=== PATIENT | male | born 1970 | race Hispanic/Latino ===

== ENCOUNTER 2018-01-31 | Emergency (ER) | payer BC ==
--- NOTE | 2018-01-31 15:03 | EDPHYS ---
Physician Documentation [facility] Name: Nasim Richard Jr Age: 48 yrs Sex: Male : 1970 Arrival Date: 01/31/2018 Time: 14:03 Bed 23 Private MD: ED Physician Rafal Cain HPI: 01/31 15:36 This 48 yrs old Male presents to ER via Ambulatory with complaints of Ear Pain.jr8 15:36 The patient presents with a fullness, pain. The complaints affect the right ear. Onset: jr8 The symptoms/episode began/occurred acutely, 2 day(s) ago. Modifying factors: The symptoms are alleviated by nothing, the symptoms are aggravated by nothing. Associated signs and symptoms: Pertinent positives: cough, rhinorrhea, sinus trouble. Severity of symptoms: At their worst the symptoms were moderate in the emergency department the symptoms are unchanged. The patient has not experienced similar symptoms in the past. The patient has not recently seen a physician. Historical: - Allergies: 14:14 No Known Allergies; hb - Home Meds: 14:14 lisinopril 20 mg Oral tab 1 tab once daily [Active]; hb - PMHx: 14:14 Hypertension; hb - PSHx: 14:14 vocal chord sx; hb - Immunization history:: Adult Immunizations up to date. - Social history:: Smoking status: Patient/guardian denies using tobacco. ROS: 15:36 Eyes: Negative for injury, pain, redness, and discharge, Neck: Negative for injury, jr8 pain, and swelling, Cardiovascular: Negative for chest pain, palpitations, and edema, Abdomen/GI: Negative for abdominal pain, nausea, vomiting, diarrhea, and constipation, Back: Negative for injury and pain, MS/Extremity: Negative for injury and deformity, Skin: Negative for injury, rash, and discoloration, Neuro: Negative for headache, weakness, numbness, tingling, and seizure. 15:36 ENT: Positive for ear pain, rhinorrhea, sinus congestion, sinus pain, Negative for tinnitus. 15:36 Respiratory: Positive for cough, Negative for shortness of breath, sputum production, wheezing. Exam: 15:36 Eyes: Pupils equal round and reactive to light, extra-ocular motions intact. Lids and jr8 lashes normal. Conjunctiva and sclera are non-icteric and not injected. Cornea within normal limits. Periorbital areas with no swelling, redness, or edema. Neck: Trachea midline, no thyromegaly or masses palpated, and no cervical lymphadenopathy. Supple, full range of motion without nuchal rigidity, or vertebral point tenderness. No Meningismus. Cardiovascular: Regular rate and rhythm with a normal S1 and S2. No gallops, murmurs, or rubs. Normal PMI, no JVD. No pulse deficits. Respiratory: Lungs have equal breath sounds bilaterally, clear to auscultation and percussion. No rales, rhonchi or wheezes noted. No increased work of breathing, no retractions or nasal flaring. Abdomen/GI: Soft, non-tender, with normal bowel sounds. No distension or tympany. No guarding or rebound. No evidence of tenderness throughout. Back: No spinal tenderness. No costovertebral tenderness. Full range of motion. Skin: Warm, dry with normal turgor. Normal color with no rashes, no lesions, and no evidence of cellulitis. MS/ Extremity: Pulses equal, no cyanosis. Neurovascular intact. Full, normal range of motion. Neuro: Awake and alert, GCS 15, oriented to person, place, time, and situation. Cranial nerves II-XII grossly intact. Motor strength 5/5 in all extremities. Sensory grossly intact. Cerebellar exam normal. Normal gait. 15:36 Head/face: Sinus tenderness, that is moderate, is located over the right frontal sinus, left frontal sinus, right maxillary sinus and left maxillary sinus. 15:36 ENT: External ear(s): are unremarkable, Ear canal(s): erythema, that is moderate, of the right canal, swelling, that is moderate, of the right canal, TM's: are normal, Nose: External nose: no obvious acute abnormality, Nasal septum: is midline, Nasal mucosa: erythematous, moist, Turbinates: are swollen bilaterally, Mouth: Lips: moist, Oral mucosa: pink and intact, moist, Gums: pink, Tongue: is moist, Posterior pharynx: Airway: patent, Tonsils: are normal in appearance, Uvula: midline, non-edematous, no erythema, swelling, is not appreciated, erythema, is not appreciated. Vital Signs: 14:14 BP 153 / 100; Pulse 69; Resp 16; Temp 98.5; Pulse Ox 99% ; Weight 83.91 kg; Height 2 hb ft. 56 in. (203.20 cm); Pain 9/10; 14:14 Body Mass Index 20.32 (83.91 kg, 203.20 cm) hb MDM: 14:43 Patient medically screened. jr8 15:00 Data reviewed: vital signs, nurses notes, and as a result, I will discharge patient. jr8 Data interpreted: Pulse oximetry: on room air is 99 %. Interpretation: normal. Counseling: I had a detailed discussion with the patient and/or guardian regarding: the historical points, exam findings, and any diagnostic results supporting the discharge/admit diagnosis, the need for outpatient follow up, a family practitioner, to return to the emergency department if symptoms worsen or persist or if there are any questions or concerns that arise at home. Administered Medications: No medications were administered Disposition: 02/01 07:01 Co-signature as Attending Physician, Rafal Cain MD I agree with the assessment and stefano plan of care. Disposition: 01/31/18 15:02 Discharged to Home. Impression: Acute sinusitis, Otitis externa, Otalgia. - Condition is Stable. - Discharge Instructions: Otitis Media, Adult, Otitis Externa, Sinusitis, Adult. - Prescriptions for Augmentin 875- 125 mg Oral Tablet - take 1 tablet by ORAL route every 12 hours for 10 days; 20 tablet. Cortisporin- TC 3.3-3-10-0.5 mg/mL Otic Suspension - instill 4 drop by OTIC route every 6 hours; 1 bottle. Ibuprofen 800 mg Oral Tablet - take 1 tablet by ORAL route every 12 hours As needed take with food; 20 tablet. - Medication Reconciliation Form, Thank You Letter, Antibiotic Education, Prescription Opioid Use form. - Follow up: Private Physician; When: 5 - 6 days; Reason: Recheck today's complaints, Continuance of care, Re-evaluation by your physician. - Problem is new. - Symptoms have improved. Signatures: Rfaal Cain MD MD cha Roszak, Josh, PA PA jr8 Vonda Sheikh, RN RN Leena Landeros RN RN rk2 Corrections: (The following items were deleted from the chart) 01/31 15:37 15:36 ENT: Positive for rhinorrhea, sinus congestion, sinus pain, jr8 jr8
--- NOTE | 2018-01-31 15:03 | ER ---
Nurse's Notes [facility] Name: Nasim Richard Jr Age: 48 yrs Sex: Male : 1970 Arrival Date: 01/31/2018 Time: 14:03 Bed 23 Private MD: Diagnosis: Acute sinusitis;Otitis externa;Otalgia Presentation: 01/31 14:12 Presenting complaint: Patient states: Right ear pain x 5 days. Transition of care: hb patient was not received from another setting of care. Onset of symptoms was January 26, 2018. Care prior to arrival: None. 14:12 Method Of Arrival: Ambulatory 14:12 Acuity: ELEAZAR 4 hb Triage Assessment: 15:00 General: Appears in no apparent distress. well groomed, well developed, well nourished, rk2 Behavior is calm, cooperative. Pain: Complains of pain in right ear. EENT: Reports pain in right ear. 15:00 Neuro: Level of Consciousness is alert, obeys commands, Oriented to person, place, rk2 time, situation. Respiratory: Airway is patent Respiratory effort is even, unlabored, Respiratory pattern is regular, symmetrical. Derm: Skin is pink, warm \T\ dry. Historical: - Allergies: 14:14 No Known Allergies; hb - Home Meds: 14:14 lisinopril 20 mg Oral tab 1 tab once daily [Active]; hb - PMHx: 14:14 Hypertension; hb - PSHx: 14:14 vocal chord sx; hb - Immunization history:: Adult Immunizations up to date. - Social history:: Smoking status: Patient/guardian denies using tobacco. Screenin:00 Abuse screen: Denies threats or abuse. rk2 15:00 Nutritional screening: No deficits noted. Tuberculosis screening: No symptoms or risk rk2 factors identified. Fall Risk None identified. Vital Signs: 14:14 BP 153 / 100; Pulse 69; Resp 16; Temp 98.5; Pulse Ox 99% ; Weight 83.91 kg; Height 2 hb ft. 56 in. (203.20 cm); Pain 9/10; 14:14 Body Mass Index 20.32 (83.91 kg, 203.20 cm) hb ED Course: 14:03 Patient arrived in ED. sb2 14:13 Triage completed. hb 14:13 Arm band placed on left wrist. hb 14:43 Maldonado Henson [facility] is [facility] 14:43 Rafal Cain MD is Attending Physician. jr8 15:00 Patient has correct armband on for positive identification. Bed in low position. Call rk2 light in reach. 15:15 No provider procedures requiring assistance completed. Patient did not have IV access rk2 during this emergency room visit. Administered Medications: No medications were administered Outcome: 15:02 Discharge ordered by . jr8 15:15 Discharged to home ambulatory. rk2 15:15 Condition: good 15:15 Discharge instructions given to patient. 15:16 Patient left the ED. rk2 Signatures: Maldonado Henson PA PA jr8 Vonda Sheikh RN RN Leena Landeros RN RN rk2 Rupali Pacheco 2
== END 2018-01-31 15:16 | disposition home or self-care (01) ==
CPT/HCPCS: 99281

== ENCOUNTER 2022-05-22 23:32 | Inpatient (IN) | payer BC, SELFPAY ==
[2022-05-23 00:12] LABS: Absolute Lymphocytes (CBC) 1.6 K/uL (0.7-4.9); Hematocrit 41.1 % (39.6-49.0); Lymphocytes % 28.9 % (15.3-44.8); MCV 88.3 fL (80-100); MPV 6.7 fL (7.6-11.3); Protime INR 1.04; RBC Red Blood Cell Count 4.65 M/uL (4.33-5.43)
[2022-05-23 00:32] LABS: ALT/SGPT 24 U/L (12-78); AST/SGOT 13 U/L (15-37); Albumin 3.9 g/dL (3.4-5.0); Alkaline Phosphatase 44 U/L (45-117); BUN Blood Urea Nitrogen 14 mg/dL (7-18); Bicarbonate 25 mmol/L (21-32); Bilirubin Direct < 0.1 mg/dL (0-0.2); Bilirubin Total 0.3 mg/dL (0.2-1.0); Glomerular Filtration Rate 90 ml/min (=/>90); Glucose Level 109 mg/dL (74-106); NT PRO-BNP 100 pg/mL (<125); Potassium 3.5 mmol/L (3.5-5.1); Protein, Total 7.4 g/dL (6.4-8.2); Sodium Level 139 mmol/L (136-145)
[2022-05-23 00:34] LABS: Troponin High Sensitivity 135.2 pg/mL (<58.9)
[2022-05-23] MEDS ORDERED: NA CHLORIDE 0.9% 500 ML ONE (00:39)
[2022-05-23] MEDS ORDERED: ASPIRIN 81 MG CHEWABLE TABLET ONE (00:39)
[2022-05-23] MEDS ORDERED: NITROGLYCERIN 0.4 MG/TAB SL ONE (00:39)
--- NOTE | 2022-05-23 01:09 | ER ---
Nurse's Notes [facility] Name: Nasim Richard Jr Age: 52 yrs Sex: Male : 1970 Arrival Date: 05/22/2022 Time: 23:33 Bed 17 Private MD: Diagnosis: Subsequent non-ST elevation (NSTEMI) myocardial infarction Presentation: 05/22 23:45 Chief complaint: Patient states: he was lying on the couch about an hour ago and bb started having chest pain he denies SOB, nausea, light-headedness or dizziness, has not experienced this in the past. Coronavirus screen: At this time, the client does not indicate any symptoms associated with coronavirus-19. Ebola Screen: No symptoms or risks identified at this time. Initial Sepsis Screen: Does the patient meet any 2 criteria? No. Patient's initial sepsis screen is negative. Does the patient have a suspected source of infection? No. Patient's initial sepsis screen is negative. Risk Assessment: Do you want to hurt yourself or someone else? Patient reports no desire to harm self or others. Onset of symptoms was May 22, 2022. 23:45 Method Of Arrival: Ambulatory bb 23:45 Acuity: ELEAZAR 3 bb Triage Assessment: 23:45 General: Appears uncomfortable, Behavior is cooperative, anxious. Pain: Complains of vc1 pain in chest Pain radiates to back Pain currently is 4 out of 10 on a pain scale. at worst was 5 out of 10 on a pain scale. Quality of pain is described as pressure. EENT: No deficits noted. Neuro: Level of Consciousness is awake, alert, obeys commands, Oriented to person, place, time, situation, Appropriate for age. Cardiovascular: Reports chest pain, Capillary refill < 3 seconds Patient's skin is warm and dry. Chest pain is described as mild, quality is pressure, is located in anterior chest wall radiates back began suddenly, 1 hour prior to arrival. 23:45 Respiratory: Airway is patent Respiratory effort is even, unlabored, Respiratory vc1 pattern is regular, symmetrical. GI: No deficits noted. : No deficits noted. Derm: No deficits noted. Musculoskeletal: No deficits noted. Historical: - Allergies: 23:47 No Known Allergies; bb - Home Meds: 23:47 None [Active]; bb - PMHx: 23:47 Hypertension; bb - PSHx: 23:47 None; bb - Immunization history:: Client reports having NOT received the Covid vaccine. - Social history:: Smoking status: Patient reports the use of cigarette tobacco products. Screenin/18 01:43 Abuse screen: Denies threats or abuse. Nutritional screening: No deficits noted. vc1 Tuberculosis screening: No symptoms or risk factors identified. Fall Risk None identified. Assessment: 05/22 23:45 Pain: Pain began suddenly, 1 hour ago. vc1 05/23 00:15 Reassessment: Patient and/or family updated on plan of care and expected duration. Pain vc1 level reassessed. Patient is alert, oriented x 3, equal unlabored respirations, skin warm/dry/pink. Patient states symptoms have improved. 01:30 Reassessment: No changes from previously documented assessment. Patient and/or family vc1 updated on plan of care and expected duration. Pain level reassessed. Patient is alert, oriented x 3, equal unlabored respirations, skin warm/dry/pink. 02:28 Reassessment: Patient and/or family updated on plan of care and expected duration. Pain vc1 level reassessed. Patient is alert, oriented x 3, equal unlabored respirations, skin warm/dry/pink. Patient states feeling better. Patient states symptoms have improved. Pain: Complains of pain in chest Pain level that patient reports is acceptable is 2 out of 10 on a pain scale. Vital Signs: 05/22 23:45 BP 168 / 97; Pulse 66; Resp 16 S; Temp 98.1(O); Pulse Ox 95% on R/A; Weight 83.91 kg bb (R); Height 5 ft. 6 in. (167.64 cm) (R); Pain 5/10; 05/23 01:42 BP 130 / 92; Pulse 58; Resp 16; Pulse Ox 95% on 2 lpm NC; vc1 02:39 BP 121 / 87; Pulse 56; Resp 17; Pulse Ox 95% on 2 lpm NC; vc1 05/22 23:45 Body Mass Index 29.86 (83.91 kg, 167.64 cm) ED Course: 05/22 23:33 Patient arrived in ED. jj6 23:35 Inserted saline lock: 20 gauge in right antecubital area, using aseptic technique. vc1 Blood collected. 23:42 Rafal Bansal PA is PHCP. cp 23:42 Yasmany Moctezuma MD is Attending Physician. cp 23:47 Triage completed. bb 23:47 Arm band placed on Patient placed in an exam room, on a stretcher, on telemetry monitor, bb on pulse oximetry. EKG completed in triage. Results shown to MD. 23:47 Patient has correct armband on for positive identification. Placed in gown. Bed in low vc1 position. Call light in reach. Client placed on continuous cardiac and pulse oximetry monitoring. NIBP monitoring applied. 23:53 Marisa Fuller RN is Primary Nurse. vc1 05/23 00:13 XRAY Chest (1 view) In Process Unspecified. EDMS 00:30 Oxygen administration via nasal cannula \T\ 2L/min. vc1 00:34 Notified Nurse Practitioner and/or Physician Lead Game Designer of a critical lab result(s), bb troponin of 135.2 Rafal SANTOS notified. 01:08 Aaron Michael MD is Hospitalizing Provider. cp 03:08 No provider procedures requiring assistance completed. Patient admitted, IV remains in vc1 place. Administered Medications: 00:34 Drug: Aspirin Chewable Tablet 162 mg Route: PO; vc1 00:35 Drug: Nitroglycerin 0.4 mg Route: Sublingual; vc1 00:36 Drug: NS 0.9% 500 ml Route: IV; Rate: bolus; Site: right antecubital; vc1 00:42 Drug: Nitroglycerin 0.4 mg Route: Sublingual; vc1 01:42 Drug: Lovenox (enoxaparin) 1 mg/kg Route: Sub-Q; Site: right lower abdomen; vc1 01:43 Not Given (Hemodynamic Parameters): Metoprolol 25 mg PO once vc1 Medication: 01:46 VIS not applicable for this client. vc1 Outcome: 01:09 Decision to Hospitalize by Provider. cp 03:08 Admitted to Med/surg accompanied by tech, via wheelchair, room 205, Report called to ralph Valdez RN 03:08 Condition: improved 03:08 Instructed on the need for admit. 03:09 Patient left the ED. vc1 Signatures: Dispatcher [employer] EDMaria Alejandra Amaya RN RN bb Page, Corey, PA PA cp Frieda Pattersonfer jj6 Alina, Marisa, RN RN vc1
--- NOTE | 2022-05-23 01:10 | EDPHYS ---
Physician Documentation [facility] Name: Nasim Richard Jr Age: 52 yrs Sex: Male : 1970 Arrival Date: 05/22/2022 Time: 23:33 Bed 17 Private MD: ED Physician Yasmany Moctezuma HPI: 05/22 23:45 This 52 yrs old Male presents to ER via Ambulatory with complaints of Chest cp Pain. 23:45 The patient or guardian reports chest pain that is located primarily in the substernal cp area. 23:45 Onset: 1 hour(s) ago. The pain does not radiate. Associated signs and symptoms: cp Pertinent negatives: abdominal pain, cough, diaphoresis, lower extremity pain, lower extremity swelling, shortness of breath, syncope, vomiting. The chest pain is described as a pressure. Duration: The patient or guardian reports a single episode, that is still ongoing, and unchanged. Modifying factors: The symptoms are alleviated by nothing. the symptoms are aggravated by nothing. Pain started while on couch watching TV. Reports similar episode of chest pain previous night. Historical: - Allergies: 23:47 No Known Allergies; bb - Home Meds: 23:47 None [Active]; bb - PMHx: 23:47 Hypertension; bb - PSHx: 23:47 None; bb - Immunization history:: Client reports having NOT received the Covid vaccine. - Social history:: Smoking status: Patient reports the use of cigarette tobacco products. ROS: 23:45 Constitutional: Negative for body aches, chills, fever, poor PO intake. cp 23:45 Eyes: Negative for injury, pain, redness, and discharge. cp 23:45 ENT: Negative for drainage from ear(s), ear pain, sore throat, difficulty swallowing, difficulty handling secretions. 23:45 Cardiovascular: Positive for chest pain, of the substernal, Negative for edema, palpitations. 23:45 Respiratory: Negative for cough, shortness of breath, wheezing. 23:45 Abdomen/GI: Negative for abdominal pain, vomiting, diarrhea, constipation. Exam: 23:45 ECG was reviewed by the Attending Physician. cp 23:50 Constitutional: The patient appears in no acute distress, alert, awake, non-toxic, well cp developed, well nourished. 23:50 Head/Face: Normocephalic, atraumatic. cp 23:50 Eyes: Periorbital structures: appear normal, Conjunctiva: normal, no exudate, no injection, Sclera: no appreciated abnormality, Lids and lashes: appear normal, bilaterally. 23:50 ENT: External ear(s): are unremarkable, Nose: is normal, Mouth: Lips: moist, Oral mucosa: pink and intact, moist, Posterior pharynx: Airway: no evidence of obstruction, patent. 23:50 Neck: ROM/movement: is normal, is supple, without pain, no range of motions limitations. 23:50 Chest/axilla: Inspection: normal, Palpation: is normal, no crepitus, no tenderness. 23:50 Cardiovascular: Rate: normal, Rhythm: regular, Edema: is not appreciated, JVD: is not appreciated. 23:50 Respiratory: the patient does not display signs of respiratory distress, Respirations: normal, no use of accessory muscles, no retractions, labored breathing, is not present, Breath sounds: are clear throughout, no decreased breath sounds, no stridor, no wheezing. 23:50 Abdomen/GI: Inspection: abdomen appears normal, Bowel sounds: active, all quadrants, Palpation: abdomen is soft and non-tender, in all quadrants. 23:50 Back: pain, is absent, ROM is normal. 23:50 Neuro: Orientation: to person, place \\T\\ time. Mentation: is normal, Motor: moves all fours, strength is normal, Sensation: is normal. Vital Signs: 23:45 BP 168 / 97; Pulse 66; Resp 16 S; Temp 98.1(O); Pulse Ox 95% on R/A; Weight 83.91 kg bb (R); Height 5 ft. 6 in. (167.64 cm) (R); Pain 5/10; 05/23 01:42 BP 130 / 92; Pulse 58; Resp 16; Pulse Ox 95% on 2 lpm NC; vc1 02:39 BP 121 / 87; Pulse 56; Resp 17; Pulse Ox 95% on 2 lpm NC; vc1 05/22 23:45 Body Mass Index 29.86 (83.91 kg, 167.64 cm) bb MDM: 05/22 23:43 Patient medically screened. cp 05/23 01:05 The patient was given aspirin in the Emergency Department. cp 01:05 Data reviewed: vital signs, nurses notes, lab test result(s), EKG, radiologic studies, cp plain films, I have discussed the patient's presentation/case with the attending Emergency Department Physician; and as a result, I will admit patient. Test interpretation: by ED physician or midlevel provider: ECG, plain radiologic studies. Physician consultation: Aaron Michael MD was called at 01:00, was contacted at 01:00, regarding admission, to the telemetry unit. patient's condition. 05/22 23:43 Order name: Basic Metabolic Panel; Complete Time: 00:40 05/22 23:43 Order name: CBC with Diff; Complete Time: 00:40 05/22 23:43 Order name: LFT's; Complete Time: 00:40 05/22 23:43 Order name: Magnesium; Complete Time: 00:40 05/22 23:43 Order name: NT PRO-BNP; Complete Time: 00:40 05/22 23:43 Order name: PT-INR; Complete Time: 00:40 05/22 23:43 Order name: Troponin HS; Complete Time: 00:40 05/23 00:40 Interpretation: Abnormal: Troponin HS 135.2. 05/23 00:43 Order name: COVID-19 SARS RT PCR (Document "Date of Onset" if Symptomatic); Complete vc1 Time: 17:05/23 01:23 Order name: Urinalysis [facility] 05/23 01:23 Order name: CKMB Creatine Kinase MB [facility] 05/23 01:23 Order name: CKMB Creatine Kinase MB; Complete Time: 17:06 [facility] 05/23 01:23 Order name: CKMB Creatine Kinase MB; Complete Time: 17:06 [facility] 05/23 01:23 Order name: CKMB Creatine Kinase MB [facility] 05/23 01:23 Order name: Creatine Phosphokinase [facility] 05/22 23:43 Order name: XRAY Chest (1 view) 05/22 23:43 Order name: EKG; Complete Time: 23:44 05/23 01:23 Order name: Creatine Phosphokinase; Complete Time: 17:06 [facility] 05/23 01:23 Order name: Creatine Phosphokinase; Complete Time: 17:06 [facility] 05/23 01:23 Order name: Creatine Phosphokinase [facility] 05/23 01:23 Order name: Lipid Profile [facility] 05/23 01:23 Order name: Lipid Profile; Complete Time: 17:06 [facility] 05/23 01:25 Order name: Troponin High Sensitivity [facility] 05/23 01:25 Order name: Troponin High Sensitivity; Complete Time: 17:06 [facility] 05/23 01:25 Order name: Troponin High Sensitivity; Complete Time: 17:06 [facility] 05/23 01:26 Order name: Hemoglobin A1c; Complete Time: 17:06 [facility] 05/22 23:43 Order name: Cardiac monitoring; Complete Time: 23:47 cp 05/22 23:43 Order name: EKG - Nurse/Tech; Complete Time: 23:47 cp 05/22 23:43 Order name: IV Saline Lock; Complete Time: 23:53 cp 05/22 23:43 Order name: Labs collected and sent; Complete Time: 23:53 cp 05/22 23:43 Order name: O2 Per Protocol; Complete Time: 23:53 cp 05/22 23:43 Order name: O2 Sat Monitoring; Complete Time: 23:53 cp 05/23 01:23 Order name: Heart Healthy EDMS EC/17 23:45 Rate is 68 beats/min. Rhythm is regular. RI interval is normal. QRS interval is normal. cp QT interval is normal. T waves are Inverted in lead aVR. Interpreted by me. Reviewed by me. Administered Medications: 05/23 00:34 Drug: Aspirin Chewable Tablet 162 mg Route: PO; vc1 00:35 Drug: Nitroglycerin 0.4 mg Route: Sublingual; vc1 00:36 Drug: NS 0.9% 500 ml Route: IV; Rate: bolus; Site: right antecubital; vc1 00:42 Drug: Nitroglycerin 0.4 mg Route: Sublingual; vc1 01:42 Drug: Lovenox (enoxaparin) 1 mg/kg Route: Sub-Q; Site: right lower abdomen; vc1 01:43 Not Given (Hemodynamic Parameters): Metoprolol 25 mg PO once vc1 Disposition: 07:09 Co-signature as Attending Physician, Yasmany Moctezuma MD. mh7 Disposition Summary: 05/23/22 01:09 Hospitalization Ordered Hospitalization Status: Inpatient Admission cp Provider: Aaron Michael cp Location: Telemetry/MedSurg (Inpatient) cp Condition: Stable cp Problem: new cp Symptoms: have improved cp Bed/Room Type: Standard cp Room Assignment: 215(05/23/22 02:34) mw Diagnosis - Subsequent non-ST elevation (NSTEMI) myocardial infarction cp Forms: - Medication Reconciliation Form cp - SBAR form cp Signatures: Dispatcher [employer] EDSera Gan RN RN mw Ballard, Brenda, RN RN bb Page, Corey, PA PA cp Holmes, Maurice, MD MD mh7 Marisa Fuller RN RN vc1 Corrections: (The following items were deleted from the chart) 02:34 01:09 cp mw
[2022-05-23] MEDS ORDERED: ONDANSETRON 4 MG/2 ML VIAL IV PRN (01:17)
[2022-05-23] MEDS ORDERED: ACETAMINOPHEN 500 MG TAB PO PRN (01:17)
[2022-05-23] MEDS ORDERED: ENOXAPARIN 80 MG/0.8 ML SQ ONE ×2 (01:21→06:00)
[2022-05-23] MEDS ORDERED: METOPROLOL TAR 25 MG TAB ONE (01:21)
[2022-05-23 03:20] LABS: Troponin High Sensitivity 540.6 pg/mL (<58.9)
[2022-05-23 03:29] VITALS: BMI 29.0
[2022-05-23 04:25] LABS: Specific Gravity 1.025 (1.005-1.030); Urine Bilirubin Negative (Negative); Urine Blood Negative (Negative); Urine Clarity Clear (Clear); Urine Color Yellow (Yellow); Urine Glucose Negative (Negative); Urine Protein Negative (Negative)
--- NOTE | 2022-05-23 05:40 | P.HP ---
Certification for Inpatient Patient admitted to: Observation With expected LOS: <2 Midnights Practitioner: I am a practitioner with admitting privileges, knowledge of patient current condition, hospital course, and medical plan of care. Services: Services provided to patient in accordance with Admission requirements found in Title 42 Section 412.3 of the Code of Federal Regulations Patient History Date of Service: 05/23/22 Reason for admission: Chest pain History of Present Illness: 52-year-old male patient with no significant medical history who was evaluated in the emergency room for episode of chest pain. He reported chest pain that started while he was watching TV started more like indigestion/heaviness in the chest rated 6 out of 10 in intensity. There was no episode of radiation of pain to the jaw or left arm. No dizzy spells. No nausea no vomiting. He had no fever cough prior to episode. He had a difficulty breathing episode. He decided to come to the ED because he was worried about his heart. In the emergency department he had initial troponin that was marginally elevated at 150 however EKG and chest x-ray nonconcerning. He was asked to be admitted for ACS work-up. Allergies No Known Drug Allergies Allergy (Verified 05/23/22 01:58) Rash - Social History Smoking Status: Current every day smoker Review of Systems General: Unremarkable Eyes: Unremarkable ENT: Unremarkable Respiratory: Unremarkable Cardiovascular: Chest Pain Gastrointestinal: Unremarkable Genitourinary: Unremarkable Musculoskeletal: Unremarkable Integumentary: Unremarkable Neurological: Unremarkable Physical Examination - Vital Signs Temperature: 98.1 F Blood Pressure: 121/87 Pulse: 56 Respirations: 17 - Physical Exam General: Alert, Oriented x3 HEENT: Atraumatic, Normocephalic Neck: Supple Respiratory: Normal air movement Cardiovascular: Regular rate/rhythm, Normal S1 S2 Gastrointestinal: Soft and benign Musculoskeletal: No swelling Neurological: Normal speech - Studies Laboratory Data (last 24 hrs) 05/22/22 23:46: PT 11.4, INR 1.04 05/22/22 23:46: WBC 5.5, Hgb 14.4, Hct 41.1, Plt Count 292 05/22/22 23:46: Sodium 139, Potassium 3.5, BUN 14, Creatinine 1.00, Glucose 109 H, Magnesium 2.0, Total Bilirubin 0.3, AST 13 L, ALT 24, Alkaline Phosphatase 44 L Assessment and Plan - Plan Chest pain NSTEMI Plan: Present episode of chest pain is concerning for ACS. He has significant family history of heart issues in both his parents. We will trend troponin, start aspirin therapy and also obtain lipid panel. Will obtain echocardiogram to evaluate cardiac function. We will have cardiology evaluate patient based on trend up of troponin. Therapeutic Lovenox started for management of ACS. Prophylaxis: Lovenox for DVT and ACS treatment CODE STATUS: Full code Disposition: To be discharged home once medically cleared. - Advance Directives Does patient have a Living Will: No Does patient have a Durable POA for Healthcare: No
[2022-05-23] MEDS: INSULIN -REGULAR HUMAN 50 UNIT/0.5 ML ML SQ SCH ×4 (07:30→20:56)
[2022-05-23 08:05] LABS: CKMB Creatine Kinase MB 25.6 ng/mL (1.0-3.6)
[2022-05-23] MEDS: ASPIRIN 325 MG TAB PO SCH (08:42)
[2022-05-23] MEDS ORDERED: POTASSIUM CL SA 10 MEQ TAB PO ONE (09:00)
[2022-05-23] MEDS ORDERED: ENOXAPARIN 40 MG/0.4 ML SQ SCH (09:00)
--- NOTE | 2022-05-23 11:27 | CON ---
Date of Consultation: 05/23/2022 Admitted with non-STEMI to Dr. Bustos on 05/23/2022. I saw the patient on 05/23/2022. History Of Present Illness: Mr. Richard is a 52-year-old [place] male without any past medic al history. He has a strong family history of heart disease. Yesterday while he was walking in the ER, developed substernal chest pressure radiating to both arms with nausea, diaphoresis, shortness of breath. Denied PND, orthopnea, pedal edema, palpitations, or syncope. Had a normal chest x-ray, un remarkable EKG, but his troponin was 2558. He is now on Lovenox, aspirin and metoprolol. He is asym ptomatic. Past Medical History: Negative. Allergies: NONE. Review of Systems: Negative. Social History: Negative. Family History: Positive for heart disease in his mom, who has 5 stents. Physical Examination: Vital Signs: Stable, afebrile. HEENT: Negative. Neck: Supple with no bruit. Chest: Clear. Cardiac: Revealed a regular rhythm and rate. No murmurs, gallops, or rubs. Abdomen: Benign. Extremities: Revealed no clubbing, cyanosis, or edema. Diagnostic Data: As stated earlier. Impression And Plan: Non-ST elevation myocardial infarction. Continue Lovenox and aspirin and beta- jose. He should be on a statin. We will do a left heart catheterization with selective coronary artery angiogram tomorrow to define his coronary anatomy. The patient understands the risks and the benefits of the procedure. He agrees to proceed. JUAN/ILANA Voice ID: [id number] Report ID: [id number]
--- NOTE | 2022-05-23 12:23 | P.PN ---
Date of Service: 05/23/22 Patient seen and examined. He denies any chest pain at the moment. Troponin trended up to 2500. Diagnosis: NSTEMI Hyperlipidemia Plan: Dr. Linares is planning cardiac catheterization tomorrow. Continue full dose Lovenox. Hold dose tonight. Aspirin Beta-jose. Echocardiogram.
--- NOTE | 2022-05-23 12:41 | EKG ---
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
[2022-05-23] MEDS ORDERED: ENOXAPARIN 80 MG/0.8 ML SQ SCH (13:00)
[2022-05-23] MEDS ORDERED: POTASSIUM 25 MEQ EFFERV TAB PO ONE (14:51)
[2022-05-23] MEDS: METOPROLOL TAR 25 MG TAB PO SCH (17:14)
[2022-05-23 18:19] LABS: CKMB Creatine Kinase MB 22.6 ng/mL (1.0-3.6)
[2022-05-24 05:51] LABS: Hematocrit 42.8 % (39.6-49.0); MCV 89.4 fL (80-100); MPV 6.8 fL (7.6-11.3); RBC Red Blood Cell Count 4.79 M/uL (4.33-5.43)
[2022-05-24 06:00] LABS: Potassium 3.9 mmol/L (3.5-5.1)
[2022-05-24] MEDS: METOPROLOL TAR 25 MG TAB PO SCH ×2 (06:00→17:45)
[2022-05-24] MEDS: ASPIRIN 325 MG TAB PO SCH (06:20)
--- NOTE | 2022-05-24 07:04 | ECHO ---
HEIGHT: 5 ft 6 in WEIGHT: 185 lb 0 oz DATE OF STUDY: 05/23/[address]: Aaron Michael MD 2-DIMENSIONAL: YES M.MODE: YES DOPPLER: YES COLOR FLOW: YES TDS: PORTABLE: YES DEFINITY: BUBBLE STUDY: DIAGNOSIS: CHEST PAIN, NON ST ELEVATION MYOCARDIAL INFARCTION CARDIAC HISTORY: CATHERIZATION: NO SURGERY: NO PROSTHETIC VALVE: NO PACEMAKER: NO MEASUREMENTS (cm) DIASTOLIC (NORMALS) SYSTOLIC (NORMALS) IVSd 1.3 (0.6-1.2) LA Diam 2.7 (1.9-4.0) LVEF 60% LVIDd 3.3 (3.5-5.7) LVIDs 2.3 (2.0-3.5) %FS 31% LVPWd 1.3 (0.6-1.2) Ao Diam 2.6 (2.0-3.7) 2 DIMENSIONAL ASSESSMENT: RIGHT ATRIUM: NORMAL LEFT ATRIUM: NORMAL RIGHT VENTRICLE: NORMAL LEFT VENTRICLE: MILD CONCENTRIC LEFT VENTRICULAR HYPERTROPHY TRICUSPID VALVE: MILD TRICUSPID REGURGITATION MITRAL VALVE: MILD MITRAL REGURGITATION PULMONIC VALVE: NORMAL AORTIC VALVE: NORMAL PERICARDIAL EFFUSION: NONE AORTIC ROOT: NORMAL LEFT VENTRICULAR WALL MOTION: NORMAL DOPPLER/COLOR FLOW: MILD MITRAL REGURGITATION, MILD TRICUSPID REGURGITATION, MILD AORTIC INSUFFICIENCY COMMENTS: NORMAL LEFT VENTRICULAR EJECTION FRACTION 55-60%. NORMAL DIASTOLIC FUNCTION. MILD MITRAL REGURGITATION. MILD TRICUSPID REGURGITATION, MILD AORTIC INSUFFICIENCY. TECHNOLOGIST: DENICE MICHAEL
[2022-05-24] MEDS: INSULIN -REGULAR HUMAN 50 UNIT/0.5 ML ML SQ SCH ×4 (07:30→20:18)
--- NOTE | 2022-05-24 08:59 | RAD REPORT ---
EXAM DESCRIPTION: RAD - Chest Single View - 05/23/2022 12:11 am CLINICAL HISTORY: The patient is 52 years old and is Male; CHEST PAIN TECHNIQUE: Frontal view of the chest. COMPARISON: No relevant prior studies available. FINDINGS: Lungs: Unremarkable. No consolidation. Pleural space: Unremarkable. No pneumothorax. Heart: Unremarkable. Mediastinum: Unremarkable. Bones/joints: Unremarkable. IMPRESSION: No acute findings in the chest. Electronically signed by: Ludwin Kong MD 05/23/2022 12:25 AM CDT Due to temporary technical issues with the PACS/Fluency reporting system, reports are being signed by the in house radiologists without review as a courtesy to insure prompt reporting. The interpreting radiologist is fully responsible for the content of the report.
[2022-05-24] MEDS ORDERED: POTASSIUM CL SA 10 MEQ TAB PO ONE (09:00)
[2022-05-24] MEDS ORDERED: HEPA 1000U/500MLS 2,000 UNIT/1,000 ML BAG IV ONE (10:50)
[2022-05-24] MEDS ORDERED: FENTANYL CITR 100 MCG/2 ML ONE (10:50)
[2022-05-24] MEDS ORDERED: MIDAZOLAM HCL 2 MG/2 ML INJ ONE (10:50)
[2022-05-24] MEDS ORDERED: TICAGRELOR 90 MG TABLET PO ONE (10:51)
[2022-05-24] MEDS ORDERED: ASPIRIN 325 MG TAB ONE (10:51)
[2022-05-24] MEDS ORDERED: ATROPINE SULF 1 MG/10 ML SYR IV ONE (10:51)
[2022-05-24] MEDS ORDERED: HEPARIN 5000 UNIT/ML 1 ML VIAL ONE (10:51)
[2022-05-24] MEDS ORDERED: CLOPIDOGREL 75 MG TABLET ONE (10:51)
[2022-05-24] MEDS ORDERED: VERAPAMIL HCL 10 MG/4 ML VIAL IV ONE (10:51)
[2022-05-24] MEDS ORDERED: NA CHLORIDE 0.9% 500 ML ONE (11:33)
[2022-05-24 16:20] VITALS: O2SAT 99
--- NOTE | 2022-05-24 16:47 | P.PN ---
Date of Service: 05/24/22 Subjective: feeling better no chest pain, no SOB ROS: 10 point ROS as noted above, otherwise negative Physical exam GEN: Alert, oriented, NAD HEENT: Normal conjunctiva, sclera anicteric CV: Regular rate and rhythm, no edema Pulm: Non-labored respirations on room air ABD: Soft, nontender, nondistended Integumentary: No rashes Neuro: Normal speech, normal affect Problem List NSTEMI HLD NPO for cardiac cath today chest pain resolved telemetry without any events echo results pending resume cardiac meds once taking PO Code: full Dispo: home, today vs tomorrow, pending cath results Time Spent Managing Pts Care (In Minutes): 35
--- NOTE | 2022-05-24 17:27 | PN ---
Date of Progress Note: 05/24/2022 Subjective: The patient was seen by bedside. He is chest pain free. He is status post coronary ang iogram with PCI of mid LAD and the patient is comfortable, has no complaints. Review of Systems: No chest pain, shortness of breath, orthopnea, cough, nausea, vomiting, diarrhea. No abdominal pain. No dysuria, polyuria, or urinary urgency. All other systems reviewed and are negative. Physical Examination: Vital Signs: Reviewed. Head and Neck: Pupils are equal, reactive to light. Intact eye movements. No JVD. No cervical lym phadenopathy. Neck is supple. Thyroid is not enlarged. Lungs: Clear to auscultation bilaterally. No rhonchi, wheezing, or crackles. No accessory muscle u se. Heart: Regular rate and rhythm. No extra sounds. Abdomen: Soft, nontender. Bowel sounds positive. No organomegaly. No masses or hernia. No rigidi ty or rebound. Extremities: No edema, clubbing, or cyanosis. Intact pulses. Skin: No rash. Neurologic: Alert, awake, oriented x3. No acute focal deficits appreciated. Investigations: His troponin peaked at range of 2000 yesterday and no further troponins were ordered . Echocardiogram showed normal ejection fraction with normal wall motion abnormalities. Coronary an giogram showed severe mid LAD stenosis, status post successful PCI and has mild coronary artery disea se elsewhere. Assessment And Plan: 1.Non-ST elevation myocardial infarction, status post coronary angiogram and percutaneous coronary i ntervention of mid LAD. He was loaded with Plavix and aspirin. Continue Plavix 75 mg daily, aspirin 81 mg daily, and start him on Lipitor 80 mg at bedtime, and the patient is to be observed overnight. If no complications, then he can be discharged tomorrow and he is to follow up with me in the office in 4 weeks post discharge. 2.Dyslipidemia. Start on Lipitor 80 mg at bedtime. SR/MODL Voice ID: [id number] Report ID: [id number]
[2022-05-24] MEDS ORDERED: ATORVASTATIN 40 MG TAB PO SCH (21:00)
--- NOTE | 2022-05-25 00:18 | OP ---
Date of Procedure: 05/24/2022 Surgeon: YEVGENIY MICHAEL Procedures Performed: 1.Selective coronary angiogram. 2.Left heart catheterization. 3.PCI of severe mid LAD stenosis, used a 3.0 x 20 mm Synergy drug-eluting stent. Indication: Non-ST elevation myocardial infarction. Access: Right radial artery 6-Iranian closed with TR band. Complications: None. Estimated Blood Loss: Bleeding less than 20 mL. Anesthesia: Total sedation time was 45 minutes, used fentanyl. Description Of Procedure: After risks, benefits, and alternatives were explained, the patient agreed to procedure and signed informed consent. The patient was brought into cardiac catheterization [facility], prepped and draped in usual sterile fashion. Then, we accessed right radial artery using ped iatric micropuncture, placed a 6-Iranian slender sheath and took a 6-Iranian JL3.5 catheter to the aort ic root and engaged left main and took standard views and exchanged for 6-Iranian JR4, engaged the RCA and took standard views. The catheter was pushed over the wire into the LV, measured the LVEDP and pullback did not record any gradient. Then we gave heparin to assure ACT level above 250. We loaded 600 mg of Plavix. The patient had received aspirin already today and took a 6-Iranian left guide int o the aortic root, engaged left main, took short Runthrough wire into the left main and then the LAD and then placed it distally. Lesion was prepped using a 3.0 noncompliant balloon and then placed a 3 .0 x 20 mm Synergy drug-eluting stent across area of stenosis with good expansion of the lesion and t hen removed the wire. Final angiogram was satisfactory, removed the guide and sheath, and placed TR band with good hemostasis. Findings: 1.Left main is large and normal. 2.LAD: Proximal segment is with luminal irregularities. Then in the mid segment, there is a long s egment of 30% to 40% stenosis. Diagonal branches are small with luminal irregularities and then mid LAD after diagonal 2 branch is tight at 80% stenosis status post successful PCI as above. The rest o f the LAD looks normal. 3.Left circumflex is very large and dominant. The very distal branch that goes to the inferior wall has 40% stenosis. Otherwise, no significant disease. 4.RCA is very small non dominant with luminal irregularities. 5.Normal LVEDP at 7 mmHg. Conclusion: Severe mid left anterior descending artery stenosis, otherwise mild coronary artery dise ase. Status post successful percutaneous coronary intervention as above. Plan: 1.Continue aspirin, Plavix, high-dose statin, and cardiac risk factor modification. 2.Keep the patient overnight tonight and follow up in the office in 4 weeks post discharge. SR/MODL Voice ID: [id number] Report ID: [id number]
[2022-05-25] MEDS: METOPROLOL TAR 25 MG TAB PO SCH (06:00)
[2022-05-25 06:06] LABS: Magnesium 2.3 mg/dL (1.8-2.4); Potassium 3.9 mmol/L (3.5-5.1)
[2022-05-25] MEDS: INSULIN -REGULAR HUMAN 50 UNIT/0.5 ML ML SQ SCH (07:30)
[2022-05-25] MEDS ORDERED: POTASSIUM CL SA 10 MEQ TAB PO ONE (09:00)
[2022-05-25] MEDS ORDERED: CLOPIDOGREL 75 MG TABLET PO SCH (09:00)
[2022-05-25] MEDS: ASPIRIN 325 MG TAB PO SCH (09:19)
[2022-05-25 09:40] VITALS: BP 132/87; TEMP 97.4
--- NOTE | 2022-05-25 22:18 | P.DS ---
Admission Date: 05/23/22 Discharge Date: 05/25/22 Disposition: ROUTINE DISCHARGE Discharge Condition: GOOD Reason for Admission: Chest pain Consultations: Cardiology - Clarence Donato Brief History of Present Illness: 52yo M, no significant PMH. Presented to ED due to chest pain at rest, described as heaviness with associated shortness of breath. Initial troponin: 150, EKG without ischemic changes. Admitted for NSTEMI Hospital Course: Problem List NSTEMI, s/p LAD stent HLD Patient presents to ER with chest pain. Evaluation was concerning for NSTEMI. He underwent cardiac catheterization which revealed stenosis of his LAD and underwent stent placement. Post-operative course was uncomplicated. He was monitored overnight without issues. Discharged home with aspirin, plavix, atorvastatin. Beta-jose not given to avoid bradycardia. Baseline heart rate in low 50s. Follow up with Dr. Lima in ~1 month. Vital Signs/Physical Exam: Temp Pulse Resp BP Pulse Ox 97.4 F 57 18 132/87 98 05/25/22 08:00 05/25/22 08:00 05/25/22 08:00 05/25/22 08:00 05/25/22 08:00 Physical exam GEN: Alert, oriented, NAD HEENT: Normal conjunctiva, sclera anicteric CV: Regular rate and rhythm, no edema Pulm: Non-labored respirations on room air Neuro: Normal speech, normal affect Laboratory Data at Discharge: WBC 4.5 K/uL (4.3-10.9) D 05/24/22 05:22 Hgb 14.9 g/dL (13.6-17.9) 05/24/22 05:22 Hct 42.8 % (39.6-49.0) 05/24/22 05:22 Plt Count 272 K/uL (152-406) 05/24/22 05:22 PT 11.4 SECONDS (9.5-12.5) 05/22/22 23:46 INR 1.04 05/22/22 23:46 Sodium 136 mmol/L (136-145) 05/25/22 04:53 Potassium 3.9 mmol/L (3.5-5.1) 05/25/22 04:53 BUN 13 mg/dL (7-18) 05/25/22 04:53 Creatinine 0.92 mg/dL (0.55-1.3) 05/25/22 04:53 Glucose 108 mg/dL (74-106) H 05/25/22 04:53 Phosphorus 3.5 mg/dL (2.5-4.9) 05/25/22 04:53 Magnesium 2.3 mg/dL (1.8-2.4) 05/25/22 04:53 Total Bilirubin 0.3 mg/dL (0.2-1.0) 05/22/22 23:46 AST 13 U/L (15-37) L 05/22/22 23:46 ALT 24 U/L (12-78) 05/22/22 23:46 Alkaline Phosphatase 44 U/L (45-117) L 05/22/22 23:46 Triglycerides 374 mg/dL (<150) H 05/23/22 02:07 Cholesterol 234 mg/dL (<200) H 05/23/22 02:07 HDL Cholesterol 38 mg/dL (40-60) L 05/23/22 02:07 Cholesterol/HDL Ratio 6.16 05/23/22 02:07 Home Medications: Aspirin [Aspirin EC 81 MG] 81 mg PO DAILY 30 Days #30 tablet. 05/25/22 Atorvastatin Calcium [Lipitor] 40 mg PO BEDTIME 30 Days #30 tab 05/25/22 Clopidogrel Bisulfate [Plavix*] 75 mg PO DAILY 30 Days #30 tablet 05/25/22 New Medications: Aspirin [Aspirin EC 81 MG] 81 mg PO DAILY 30 Days #30 tablet. 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
--- OUTSIDE RECORDS SUMMARY | 2022-05-26 11:26 | XMS REPORT | Continuity of Care Document ---
:1970 Author Organization [facility] t Address [address] [place] [address] Care Team Providers Name Role Phone PCP, PATIENT DOES NOT HAVE A Primary Care Physician Unavaila presley JANE Attending Clinician Unavailable SUNNI Attending Clinician Unavailable RUSS Attending Clinician Unavailable Andrea CAMACHO Attending Clinician Jaskaran ESPINOSA Attending Clinician Latha CAMACHO Attending Clinician June CARRERA Attending Clinician Unavailable June Carrera MD Attending Clinician Buck CAMACHO Attending Clinician Maged LOPEZ Attending Clinician Unavailable BUCK Admitting Clinician Unavailable Jaskaran ESPINOSA Admitting Clinician JASKARAN Admitting Clinician Unavailable Buck CAMACHO Admitting Clinician Payers Payer Name Policy Type Policy Number Effective Date Expiration Date S naya [facility] - [id number] 2020 00:00:00 OUT OF STATE Problems Condition Condition Condition Status Onset Resolution Last Treating Co mments Source Name Details Category Date Date Treatment Clinician Date 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 Added automatic ally from request for surgery [id number] Encounter Encounter Disease Active 2021-0 Overview: Univers for for 5-10 Formattin ity of screening screening 00:00: [place] of [place] colonoscop colonoscop 00 note Me dical y y might be Branch different from the original. Added automatic ally from request for surgery [id number] Obesity Obesity Disease Active 2017-11 Univers (BMI (BMI 1-19 ity of 30-39.9) 30-39.9) 00:00: [address] Allergies, Adverse Reactions, Alerts Allergy Allergy Status Severity Reaction(s) Onset Inactive Treating Comm ents Source Name Type Date Date Clinician NO KNOWN Drug Active Univers ALLERGIE Class ity of S [facility] Social History Social Habit Start Date Stop Date Quantity Comments Source History of Cigarette Smoker Universi ty of tobacco use [facility] Exposure to 2022-05-04 2022-05-14 Not sure University of SARS-CoV-2 00:00:00 02:42:00 [facility] [place] [facility] (event) Gans Tobacco use and 2021-03-31 2021-03-31 Smokeless tobacco Un iversity of exposure 00:00:00 00:00:00 non-user [facility] Tobacco Comment 2021-03-31 2021-03-31 smoked since age Uni versity of 00:00:00 00:00:00 of 14 1PPD [facility] Sex Ass[birth year] At [birth year] Universit y of 00:00:00 00:00:00 [facility] Smoking Status Start Date Stop Date Source Smokes tobacco daily 2021-03-31 00:00:00 [facility] Medications Ordered Filled Start Stop Current Ordering Indication Dosage Frequency Signature Comments Components Source Medication Medication Date Date Medication? Clinician (SIG) Name Name sennosides Yes 8.6mg 8.6 mg, Uni vers (SENOKOT) 7-10 Oral, ity of tablet 8.6 14:00: DAILY, [place] mg 00 First dose Medical on [facility] 05/15/22 at 0900, Until Discontinu ed, Routine sennosides 8.6mg 8.6 mg, Un charles (SENOKOT) 7-10 07-10 Oral, ity of tablet 8.6 14:00: 17:59 [place]ILY[place] :11 First dose Medical on [facility] 7/10/22 at 0900, Until Discontinu ed, Routine No known No No known Unive rs medications - medication it y of 09:04: s [address] No known No No known Unive rs medications - medication it y of 09:04: s [address] acetaminoph Yes 650mg 650 mg, Un charles en 05-14 Oral, Q6H, ity of (TYLENOL) 23:00: [place] [address] [facility] [facility] Medical mg 05/14/22 at Branch 1800, Until Discontinu ed, Routine acetaminoph 2021- No 650mg 650 mg, U nivers en 05-1410 Oral, Q6H, ity of (TYLENOL) 23:00: 17:59 First dose [place] tablet 650 00 :[address] Medical mg 05/14/22 at Branch 1800, Until Discontinu ed, Routine gabapentin Yes 300mg 300 mg, Uni vers (NEURONTIN) 05-14 Oral, TID, it y of capsule 300 19:00: First dose [place] mg 00 on [facility] 05/14/22 at Branch 1400, Until Discontinu ed, Routine gabapentin 2021- No 300mg 300 mg, Un charles (NEURONTIN) 05-14 Oral, TID, i ty of capsule 300 19:00: 17:59 First dose [place] mg 00 :[address] [facility] 05/14/22 at Branch 1400, Until Discontinu ed, Routine ketorolac Yes 15mg 15 mg, Univer s (TORADOL) 05-14 Slow IV ity of injection 18:19: Push, [place] 15 mg 09 Q6HPRN, 8 Medical doses, Branch Starting on 05/14/22 at 1319, Until Discontinu ed, Routine, Pain (scale 7-10) ketorolac 2021- No 15mg 15 mg, Unive rs (TORADOL) 05-14 0710 Slow IV ity of injection 18:19: 17:59 Push, [place] 15 mg 09 :11 Q6HPRN, 8 Medical doses, Branch Starting on 05/14/22 at 1319, Until 05/15/22 at 1259, Routine, Pain (scale 7-10) ondansetron Yes 4mg 4 mg, Slow Univers (ZOFRAN 05-14 IV Push, ity of (PF)) 18:16: Q4HPRN, [place] injection 4 05 Starting Medi fredis mg on [facility] Branch 05/14/22 at 1316, Until Discontinu ed, Routine, Nausea and Vomiting (N/V) ondansetron 2021- No 4mg 4 mg, Slow Univers (ZOFRAN 05-14 IV Push, ity of (PF)) 18:16: 17:59 Q4HPRN, [place] injection 4 05 :11 Starting Medi fredis mg on Sat Branch 05/14/22 at 1316, Until 05/15/22 at 1259, Routine, Nausea and Vomiting (N/V) bupivacaine 2021- No PRN, Unive rs (preserv 05-14 Starting ity of free) 18:00: 18:13 on [facility] (SENSORCAIN 00 :39 05/14/22 at [facility]) 0.25 1300, Branch % (2.5 Until Sat mg/mL) 05/14/22 at injection 1313, Routine, Intra-op bacitracin 2021- No PRN, Univer s 500 unit/g 05-14 Starting ity of ointment 30 17:51: 18:[address] Milad as g tube 00 :39 05/14/22 at Medical 1251, Branch Until 05/14/22 at 1313, Routine, Intra-op omeprazole 2021- No 20mg Take 20 mg Univers (PRILOSEC 11-1005 by mouth ity o f OTC) 20 mg 14:34: 00:00 [place] tablet 14 :00 [facility] simethicone Yes PRN, Univer s (GAS RELIEF 04-01 Starting ity of (SIMETHICON 15:28: Rebekah [place] E)) 40 00 04/01/21 at Medical mg/0.6 mL 1028, Branch drops Until Discontinu ed, Routine, Intra-op No known No Univers medications 5-27 ity of 08:30: [place] 50 Medical Branch No known No Univers medications 5-27 ity of 08:30: [place] 50 Medical Branch HYDROcodone 2017-11 No 1{tbl} Take 1 U nivers -acetaminop 11-24 tablet by it y of hen 5-325 00:00: 00:00 mouth [place] mg tablet 00 :00 every 6 Medical (six) Branch hours as needed for Pain (scale 7-10). fluticasone 2021- No 2{spray Use 2 U nivers 50 08-03 } Sprays in ity of mcg/actuati 00:00: 00:00 each [place] on nasal 00 :00 nostril 2 Medica l spray (two) Branch times daily. lisinopril 2021- No Univer s (PRINIVIL,Z 07-09 ity of ESTRIL) 20 00:00: 00:00 [place] mg tablet 00 :00 Medical Branch diclofenac 2021- No Univer s (VOLTAREN) 06-09 ity of 75 mg EC 00:00: 00:00 [place] tablet 00 :00 Medical Branch terbinafine 2021- No Unive rs HCl 06-09 ity of (LAMISIL) 00:00: 00:00 [place] 250 mg 00 :00 Medical tablet Branch Vital Signs Vital Name Observation Time Observation Value Comments Source Systolic blood 2022-05-15 12:07:00 121 mm[Hg] Univer sity of pressure [facility] Diastolic blood 2022-05-15 12:07:00 68 mm[Hg] Unive rsity of pressure [facility] Heart rate 2022-05-15 12:07:00 76 /min [facility] Body temperature 2022-05-15 12:07:[address] [facility] Respiratory rate 2022-05-15 12:07:00 18 /min [facility] Oxygen saturation in 2022-05-15 12:07:00 97 /min [facility] Arterial blood by [facility] Pulse oximetry Branch Body height 2022-05-14 14:10:00 167.6 cm [facility] Body weight 2022-05-14 14:10:00 86.183 kg [facility] BMI 2022-05-14 14:10:00 30.67 kg/m2 [facility] [place] [facility] Systolic blood 2022-05-14 15:30:00 128 mm[Hg] Univer sity of pressure [place] [facility] Diastolic blood 2022-05-14 15:30:00 78 mm[Hg] Unive rsity of pressure [place] [facility] Heart rate 2022-05-14 15:30:00 60 /min [facility] [place] [facility] Respiratory rate 2022-05-14 15:30:00 14 /min Univ ersity [facility] [place] [facility] Oxygen saturation in 2022-05-14 15:30:00 96 /min University of Arterial blood by [place] [facility] Pulse oximetry Branch Body temperature 2022-05-14 15:15:00 36.17 Tete Univ [facility] [place] [facility] Body height 2022-05-14 14:10:00 167.6 cm [facility] [place] [facility] Body weight 2022-05-14 14:10:00 86.183 kg [facility] [place] [facility] BMI 2022-05-14 14:10:00 30.67 kg/m2 [facility] [place] [facility] Systolic blood 2022-05-14 13:00:00 131 mm[Hg] Univer sity of pressure [place] [facility] Diastolic blood 2022-05-14 13:00:00 99 mm[Hg] Unive rsity of pressure [place] [facility] Heart rate 2022-05-14 13:00:00 77 /min [facility] [place] [facility] Respiratory rate 2022-05-14 13:00:00 16 /min Univ [facility] [place] [facility] Oxygen saturation in 2022-05-14 13:00:00 96 /min University of Arterial blood by [place] [facility] Pulse oximetry Branch Body temperature 2022-05-14 07:44:00 37.28 Tete Univ [facility] [place] [facility] Body height 2022-05-14 07:44:00 167.6 cm [facility] [place] [facility] Body weight 2022-05-14 07:44:00 86.183 kg [facility] [place] [facility] BMI 2022-05-14 07:44:00 30.67 kg/m2 [facility] [place] [facility] Oxygen saturation in 2021-04-01 16:40:00 98 /min University of Arterial blood by [facility] Pulse oximetry Branch Systolic blood 2021-04-01 16:25:00 104 mm[Hg] [facility] Diastolic blood 2021-04-01 16:25:00 69 mm[Hg] [facility] Heart rate 2021-04-01 16:25:00 58 /min [facility] Body temperature 2021-04-01 16:25:[address] [facility] Respiratory rate 2021-04-01 16:25:00 22 /min [facility] Body height 2021-04-01 12:54:00 170.2 cm [facility] Body weight 2021-04-01 12:54:00 81.1 kg [facility] BMI 2021-04-01 12:54:00 28.00 kg/m2 [facility] Procedures Procedure Date / Time Performing Clinician Source Performed PHOSPHORUS 2022-05-15 10:53[facility]-15 10:53[facility] 2022-05-15 10:53[id number] (ALB,T.PRO,[facility] T,BU/BC,ALT,AST,ALK PHOS) BASIC METABOLIC PANEL 2022-05-15 10:53:00 Latha [facility] (NA, K, CL, CO2, [facility] GLUCOSE, BUN, CREATININE, CA) CBC WITH DIFF 2022-05-15 10:53:00 [facility]atha [facility] GLYCOSYLATED HEMOGLOBIN 2022-05-15 10:53:00 [facility] (A1C) [facility] PHOSPHORUS 2022-05-15 10:53:00 [facility] 2022-05-15 10:53:00 [facility] HE[facility]EL 2022-05-15 10:53:00 [facility] ([id number] (ALB,T.PRO,[facility] T,BU/BC,ALT,AST,ALK PHOS) BASIC METABOLIC PANEL 2022-05-15 10:53:00 [facility] (NA, K, CL, CO2, Medical Branch GLUCOSE, BUN, CREATININE, CA) CBC WITH DIFF 2022-05-15 10:53:00 [facility] GLYCOSYLATED HEMOGLOBIN 2022-05-15 10:53:00 [facility] (A1C) Medical [place] THYROID STIMULATING 2022-05-15 01:02:00 [facility] HORMONE [facility] LIPID PANEL 2022-05-15 01:02:00 [facility] ([id number])(TOTAL Medical Branch CHOLESTEROL, TRIGLYCERIDES, HDL) THYROID STIMULATING 2022-05-15 01:02:00 myrnaid [facility] HORMONE [facility] LIPID PANEL 2022-05-15 01:02:00 [facility] ([id number])(TOTAL Medical Branch CHOLESTEROL, TRIGLYCERIDES, HDL) PENILE FRACTURE REPAIR 2022-05-14 16:11:00 Andrea, [facility] CYSTOSCOPY 2022-05-14 16:11:00 Andrea, [facility] COVID-19 (ID NOW RAPID 2022-05-14 10:13:00 Chapis Carrera [facility] TESTING) [facility] URINALYSIS 2022-05-14 09:12:00 Jayda Toscano [facility] NOTICE OF PRIVACY 2022-05-14 07:38:04 Doctor Unassigned, No [facility] PRACTICES Name [facility] CONSENT/REFUSAL FOR 2022-05-14 07:37:41 [facility]AT[facility] Name [facility] EXTERNAL PROVIDER 2021-04-22 05:01:00 Doctor Unassigned, No [facility] RECORDS Name [facility] SURGICAL PATHOLOGY EXAM 2021-04-01 16:03:[address] [facility] COLONOSCOPY 2021-04-01 15:36:00 Buck [facility] COLONOSCOPY (ENDO) 2021-04-01 15:22:11 Self Referred, [facility] Facility [facility] CONSENT/REFUSAL FOR 2021-04-01 12:41:05 Doctor Unassigned, No [facility] DIAGNOSIS AND TREATMENT Name [facility] ASSIGNMENT OF BENEFITS 2021-04-01 12:40:35 Doctor Unassigned, No [facility] Name [facility] Encounters Start End Encounter Admission Attending Care Care Encounter Source Date/Time Date/Time Type Type Clinicians Facility Department ID 2021-09-05 Outpatient MARIA DEL ROSARIO BELTRAN [facility] GIE [id number] Univers 19:09:23 ity [facility] 2022-06-13 2022-06-13 Outpatient Emmy MOELLER [facility] [id number] Univers 09:00:00 09:00:00 HIGINIO [id number] ity [facility] 2022-06-13 2022-06-13 Outpatient Emmy MOELLER [facility] [id number] Univers 09:00:00 09:00:00 [facility] 2022-05-27 2022-05-27 Outpatient Emmy SOLANO [facility] [id number] Univers 09:00:00 09:00:00 RANDY [id number] [facility] 2022-05-27 2022-05-27 Outpatient Emmy SOLANO [facility] [id number] Univers 09:00:00 09:00:00 [facility] 2022-05-14 2022-05-[address] [facility] [id number] Univers 09:15:00 10:17:00 [facility] [id number] ity of HeRandy fabian LEAGUE [id number] Solo [id number] [address] ([facility]) 2022-05-14 2022-05-14 Surgery Andrea [facility] [id number] Univers 11:00:00 12:59:00 Bilal SPECIALTY [id number] ity of CARE [id number] [facility] AT [id number] Mo edgar MORENO [address] [place] [address] 2022-05-14 2022-05-14 Emergency X JAUN, [facility] ERT [id number] Univers 02:38:00 08:38:00 WADAIJALI ity [facility] 2022-05-14 2022-05-14 [facility] [id number] Univers 02:38:00 08:38:00 Chapis Watkins [place] [id number] ity of [place] [id number] [facility] [id number] [address] 2022-05-14 2022-05-14 Emergency X JAUN, [facility] ERT [id number] Univers 02:38:00 08:38:00 CHAPIS ity [facility] 2022-04-03 2022-04-03 Emergency [facility] [id number] Univers 05:18:00 05:19:00 CHAPIS ity [facility] 2022-04-03 2022-04-03 Emergency [facility] [id number] Univers 05:18:00 05:19:00 Chapis VALLECILLOTON [id number] ity of [place] 4.2.7.2.686 [facility] [id number] [address] 2021-04-01 2021-04-01 Outpatient R [facility] JAKE [id number] Univers 07:40:00 11:50:00 ity of [facility] 2021-04-01 2021-04-01 [facility] [id number] Univers 07:40:00 11:50:00 Encounter HEALTH [id number] ity of [place]AR [id number] [facility] [id number] [place] [address] Branch ([facility]) 2021-03-31 2021-03-31 Outpatient [facility] [id number] Univers 08:30:00 08:30:00 [id number] ity [facility] 2021-03-22 2021-03-22 Outpatient R [facility] [id number] Univers 08:35:00 08:35:00 [id number] [facility] 2021-03-12 2021-03-12 Outpatient R JESSICA, [facility] [id number] Univers 13:00:00 13:00:00 EH [facility] Results Test Description Test Time Test Comments Results Result Comments Source BASIC METABOLIC PANEL (NA, K, CL, CO2, GLUCOSE, BUN, 2022-05 11:17:32 CREATININE, CA) Test Item Value Reference Range Interpretation Comme nts NA (test code = 1746998387) 136 mmol/L 135-145 K (test code = 3194921310) 4.0 mmol/L 3.5-5 CL (test code = 1815665500) 105 mmol/L 98-108 CO2 TOTAL (test code = 5945631630) 25 mmol/L 23-31 AGAP (test code = 0375442707) 2-16 BUN (test code = 9290032582) 13 mg/dL 7-23 GLUCOSE (test code = 0203849898) 94 mg/dL 70-110 CREATININE (test code = 0.79 mg/dL 0.6-1.25 7955736528) CALCIUM (test code = 1116756629) 7.6 mg/dL 8.6-10.6 L eGFR (test code = 6944758249) mL/min/1.73m2 SURYA (test code = SURYA) Association of Glomerular Filtration Rate (GFR) and Staging of Kidney Disease* + +-------- + ------+| GFR (mL/min/1.73 m2) ?| With Kidney Damage ?| ?Without Kidney Damage+ +-- + +| ?>90 ?| ?Stage one ?| ? Normal ?+ +------- + -------+| ?60-89 ?| ?Stage two ?| ? Decreased GFR ? + +-------- + ------+| ?30-59 ?| ?Stage three ?| ? Stage three ? + +-------- + ------+| ?15-29 ?| ?Stage four ? | ? Stage four ?+ +------- + -------+| ?<15 (or dialysis) ? ?| ?Stage five ? | ? Stage five ?+ +------- + -------+ *Each stage assumes the associated GFR level has been in effect for at least three months. ?Stages 1 to 5, with or without kidney disease, indicate chronic kidney disease. Notes: Determination of stages one and two (with eGFR >59mL/min/1.73 m2) requires estimation of kidney damage for at least three months as defined by structural or functional abnormalities of the kidney, manifested by either:Pathological abnormalities or Markers of kidney damage (including abnormalities in the composition of the blood or urine or abnormalities in imaging tests). Lab Interpretation (test code = Abnormal 84998-9) [facility] 11:17:32 Test Item Value Reference Range Interpretation Comments MAGNESIUM (test code = 2340991202) 2.0 mg/dL 1.7-2.4 Lab Interpretation (test code = Normal 73257-6) [facility] 11:17:32 Test Item Value Reference Range Interpretation Comments PHOSPHORUS (test code = 9531947094) 3.6 mg/dL 2.5-5 Lab Interpretation (test code = Normal 28688-2) [facility][id number][facility] (ALB,T.PRO,BILI T,BU/BC,ALT,AST,ALK PHOS)2022-05-15 11:17:32 Test Item Value Reference Range Interpretation Comments TOTAL BILI (test code = 4554481035) 0.9 mg/dL 0.1-1.1 BILI UNCON (test code = 6349906142) 0.8 mg/dL 0.1-1.1 BILI CONJ (test code = 2887490919) 0.0 mg/dL 0-0.3 T PROTEIN (test code = 5656073063) 6.2 g/dL 6.3-8.2 L ALBUMIN (test code = 9324726516) 3.6 g/dL 3.5-5 ALK PHOS (test code = 5585747834) 29 U/L 34-122 L ALTv (test code = 1742-6) 14 U/L 5-50 AST(SGOT) (test code = 1089205583) 28 U/L 13-40 Lab Interpretation (test code = Abnormal 95924-8) [facility] METABOLIC PANEL (NA, K, CL, CO2, GLUCOSE, BUN, CREATININE, CA)2022-05-15 11:17:32 Test Item Value Reference Range Interpretation Comments NA (test code = 136 mmol/L 135-145 0260255715) K (test code = 4.0 mmol/L 3.5-5 9855110221) CL (test code = 105 mmol/L 98-108 7913129320) CO2 TOTAL (test code = 25 mmol/L 23-31 1055797942) AGAP (test code = 2-16 2739738287) BUN (test code = 13 mg/dL 7-23 9499643910) GLUCOSE (test code = 94 mg/dL 70-110 6090197744) CREATININE (test code = 0.79 mg/dL 0.6-1.25 8157267284) CALCIUM (test code = 7.6 mg/dL 8.6-10.6 L 7570552821) eGFR (test code = mL/min/1.73m2 7698097564) SURYA (test code = SURYA) Association of Glomerular Filtration Rate (GFR) and Staging of Kidney Disease* + --+ --+ ------+| GFR (mL/min/1.73 m2) ?| With Kidney Damage ?| ?Without Kidney Damage+ --------+ --------+ +| ?>90 ?| ?Stage one ?| ? Normal ?+ ---+ ---+ -------+| ?60-89 ?| ?Stage two ?| ? Decreased GFR ? + --+ --+ ------+| ?30-59 ?| ?Stage three ?| ? Stage three ? + --+ --+ ------+| ?15-29 ?| ?Stage four ? | ? Stage four ?+ ---+ ---+ -------+| ?<15 (or dialysis) ? ?| ?Stage five ? | ? Stage five ?+ ---+ ---+ -------+ *Each stage assumes the associated GFR level has been in effect for at least three months. ?Stages 1 to 5, with or without kidney disease, indicate chronic kidney disease. Notes: Determination of stages one and two (with eGFR >59mL/min/1.73 m2) requires estimation of kidney damage for at least three months as defined by structural or functional abnormalities of the kidney, manifested by either:Pathological abnormalities or Markers of kidney damage (including abnormalities in the composition of the blood or urine or abnormalities in imaging tests). Lab Interpretation Abnormal (test code = 54869-4) [facility] 11:17:32 Test Item Value Reference Range Interpretation Comments MAGNESIUM (test code = 7353348396) 2.0 mg/dL 1.7-2.4 Lab Interpretation (test code = Normal 64635-2) [facility] 11:17:32 Test Item Value Reference Range Interpretation Comments PHOSPHORUS (test code = 3763540305) 3.6 mg/dL 2.5-5 Lab Interpretation (test code = Normal 75858-9) [facility] (11384[facility] (ALB,T.PRO,BILI T,BU/BC,ALT,AST,ALK PHOS)2022-05-15 11:17:32 Test Item Value Reference Range Interpretation Comments TOTAL BILI (test code = 4859836719) 0.9 mg/dL 0.1-1.1 BILI UNCON (test code = 5445055139) 0.8 mg/dL 0.1-1.1 BILI CONJ (test code = 0288085163) 0.0 mg/dL 0-0.3 T PROTEIN (test code = 2908235376) 6.2 g/dL 6.3-8.2 L ALBUMIN (test code = 8774006607) 3.6 g/dL 3.5-5 ALK PHOS (test code = 1001405640) 29 U/L 34-122 L ALTv (test code = 1742-6) 14 U/L 5-50 AST(SGOT) (test code = 7027779617) 28 U/L 13-40 Lab Interpretation (test code = Abnormal 98309-3) [facility] (A1C)2022-05-15 11:12:15 Test Item Value Reference Range Interpretation Comments HGB A1C (test code = 5.5 % 4-5.7 4548-4) SURYA (test code = SURYA) Reference RangesNormal: <5.7%Prediabetes: 5.7 - 6.4%Diabetes: > 6.5% Lab Interpretation (test Normal code = 54739-2) [facility] (A1C)2022-05-15 11:12:15 Test Item Value Reference Range Interpretation Comments HGB A1C (test code = 5.5 % 4-5.7 4548-4) SURYA (test code = SURYA) Reference RangesNormal: <5.7%Prediabetes: 5.7 - 6.4%Diabetes: > 6.5% Lab Interpretation (test Normal code = 42130-4) [facility] [id number] 11:00:13 Test Item Value Reference Range Interpretation Comments WBC (test code = See_Comment [Automated 6690-2) message] The sy stem which generated this result transmitted reference range : 4.20 - 10.70 10*3/?L. The reference range was not used to interpret this result as normal/abnormal . RBC (test code = See_Comment L [Automated 789-8) message] The sy stem which generated this result transmitted reference range : 4.26 - 5.52 10*6/?L. The reference range was not used to interpret this result as normal/abnormal . HGB (test code = 12.6 g/dL 12.2-16.4 718-7) HCT (test code = 36.9 % 38.4-49.3 L 4544-3) MCV (test code = 90.2 fL 81.7-95.6 787-2) MCH (test code = 30.8 pg 26.1-32.7 785-6) MCHC (test code = 34.1 g/dL 31.2-35 786-4) RDW-SD (test code = 40.6 fL 38.5-51.6 81834-4) RDW-CV (test code = 12.4 % 12.1-15.4 788-0) PLT (test code = See_Comment [Automated 777-3) message] The sy stem which generated this result transmitted reference range : 150 - 328 10*3/ ?L. The reference r tasha was not used to interpret this result as normal/abnormal . MPV (test code = 8.8 fL 9.8-13 L 02937-3) NRBC/100 WBC (test See_Comment [Automat ed code = 1094811970) message] The system which generated this result transmitted reference range : 0.0 - 10.0 /100 WBCs. The refer ence range was not u sed to interpret th is result as normal/abnormal . NRBC x10^3 (test code See_Comment [Auto mated = 6434183878) message] The s ystem which generated this result transmitted reference range : 10*3/?L. The reference range was not used to interpret this result as normal/abnormal . GRAN MAT (NEUT) % 68.4 % (test code = 770-8) IMM GRAN % (test code 0.30 % = 6697062920) LYMPH % (test code = 17.9 % 736-9) MONO % (test code = 10.0 % 5905-5) EOS % (test code = 2.9 % 713-8) BASO % (test code = 0.5 % 706-2) GRAN MAT x10^3(ANC) 4.46 10*3/uL 1.99-6.95 (test code = 8589190099) IMM GRAN x10^3 (test 0-0.06 code = 3077239354) LYMPH x10^3 (test code 1.17 10*3/uL 1.09-3.23 = 731-0) MONO x10^3 (test code 0.65 10*3/uL 0.36-1.02 = 742-7) EOS x10^3 (test code = 0.19 10*3/uL 0.06-0.53 711-2) BASO x10^3 (test code 0.03 10*3/uL 0.01-0.09 = 704-7) Lab Interpretation Abnormal (test code = 47334-0) [facility] WITH [id number] 11:00:13 Test Item Value Reference Range Interpretation Comments WBC (test code = See_Comment [Automated 6690-2) message] The sy stem which generated this result transmitted reference range : 4.20 - 10.70 10*3/?L. The reference range was not used to interpret this result as normal/abnormal . RBC (test code = See_Comment L [Automated 789-8) message] The sy stem which generated this result transmitted reference range : 4.26 - 5.52 10*6/?L. The reference range was not used to interpret this result as normal/abnormal . HGB (test code = 12.6 g/dL 12.2-16.4 718-7) HCT (test code = 36.9 % 38.4-49.3 L 4544-3) MCV (test code = 90.2 fL 81.7-95.6 787-2) MCH (test code = 30.8 pg 26.1-32.7 785-6) MCHC (test code = 34.1 g/dL 31.2-35 786-4) RDW-SD (test code = 40.6 fL 38.5-51.6 36495-2) RDW-CV (test code = 12.4 % 12.1-15.4 788-0) PLT (test code = See_Comment [Automated 777-3) message] The sy stem which generated this result transmitted reference range : 150 - 328 10*3/ ?L. The reference r tasha was not used to interpret this result as normal/abnormal . MPV (test code = 8.8 fL 9.8-13 L 34858-2) NRBC/100 WBC (test See_Comment [Automat ed code = 8997408114) message] The system which generated this result transmitted reference range : 0.0 - 10.0 /100 WBCs. The refer ence range was not u sed to interpret th is result as normal/abnormal . NRBC x10^3 (test code See_Comment [Auto mated = 0894748068) message] The s ystem which generated this result transmitted reference range : 10*3/?L. The reference range was not used to interpret this result as normal/abnormal . GRAN MAT (NEUT) % 68.4 % (test code = 770-8) IMM GRAN % (test code 0.30 % = 1843459968) LYMPH % (test code = 17.9 % 736-9) MONO % (test code = 10.0 % 5905-5) EOS % (test code = 2.9 % 713-8) BASO % (test code = 0.5 % 706-2) GRAN MAT x10^3(ANC) 4.46 10*3/uL 1.99-6.95 (test code = 1971882914) IMM GRAN x10^3 (test 0-0.06 code = 1204753074) LYMPH x10^3 (test code 1.17 10*3/uL 1.09-3.23 = 731-0) MONO x10^3 (test code 0.65 10*3/uL 0.36-1.02 = 742-7) EOS x10^3 (test code = 0.19 10*3/uL 0.06-0.53 711-2) BASO x10^3 (test code 0.03 10*3/uL 0.01-0.09 = 704-7) Lab Interpretation Abnormal (test code = 07440-2) [id number] 01:54:20 Test Item Value Reference Range Interpretation Comments TSH (test code = See_Comment [Automated message] 5198945176) The system [employer] generated this result transmitted ref erence range: 0.45 - 4 .70 mIU/L. The refe rence range was not u sed to interpret this result as normal/abnor mal. Lab Interpretation (test Normal code = 36198-3) [facility] [id number] 01:54:20 Test Item Value Reference Range Interpretation Comments TSH (test code = See_Comment [Automated message] 9695862897) The system [employer] generated this result transmitted ref erence range: 0.45 - 4 .70 mIU/L. The refe rence range was not u sed to interpret this result as normal/abnor mal. Lab Interpretation (test Normal code = 03089-2) [facility])(TOTAL CHOLESTEROL, TRIGLYCERIDES, HDL)2022-05-15 01:22:58 Test Item Value Reference Range Interpretation Comments CHOL (test code = 218 mg/dL 120-200 H 7781983946) HDL (test code = 45 mg/dL See_Comment [Automated message] 5037695907) The system [employer] generated this result transmit tam reference range : >=40. The refer ence range was not u sed to interpret th is result as normal/abnormal . HDLC RATIO (test code = See_Comment [Au tomated message] 9963997818) The system [employer] generated this result transmit tam reference range : <=5.0. The refe rence range was not u sed to interpret th is result as normal/abnormal . TRIG (test code = 251 mg/dL 30-170 H 0981313113) LDL CHOL (test code = 123 mg/dL See_Comment [Auto mated message] 51330-0) The system [employer] generated this result transmit tma reference range : <=160. The refe rence range was not u sed to interpret th is result as normal/abnormal . VLDL (test code = 50 mg/dL 5-60 4488324453) Lab Interpretation (test Abnormal code = 26970-9) [facility])(TOTAL CHOLESTEROL, TRIGLYCERIDES, HDL)2022-05-15 01:22:58 Test Item Value Reference Range Interpretation Comments CHOL (test code = 218 mg/dL 120-200 H 2507611016) HDL (test code = 45 mg/dL See_Comment [Automated message] 9221360900) The system [employer] generated this result transmit tam reference range : >=40. The refer ence range was not u sed to interpret th is result as normal/abnormal . HDLC RATIO (test code = See_Comment [Au tomated message] 0926034393) The system [employer] generated this result transmit tam reference range : <=5.0. The refe rence range was not u sed to interpret th is result as normal/abnormal . TRIG (test code = 251 mg/dL 30-170 H 8330985365) LDL CHOL (test code = 123 mg/dL See_Comment [Auto mated message] 63698-2) The system [employer] generated this result transmit tam reference range : <=160. The refe rence range was not u sed to interpret th is result as normal/abnormal . VLDL (test code = 50 mg/dL 5-60 1061606811) Lab Interpretation (test Abnormal code = 41148-7) [facility] [id number] 15:54:25 Test Item Value Reference Range Interpretation Comments Case Report (test code Surgical Pathology ? ? = [id number]) ?Case: [id number] ? Authorizing Provider: ?Maria Del Rosario Jane, ?Collected: ? 04/01/2021 1103 ?Ordering Location: ? ? [facility] ? ? ? Received: ?04/01/2021 1350 ? Center [facility] ? Pathologist: ? Angie James MD PHD ?Specimen: ? ?LARGE INTESTINE, CECUM, cecal polyp ? Final Diagnosis (test k9zvrNLmZLVmq8kjDUDprG code = 0306226430) FuZzEwMzNcZnRuYmpcdWMx IHtccnRmMVxlcGljOTQwM1 ttiuVeDZAhdEFpO7Pdsrvb RAbtKZ5uOL1zqFkijZMcxO MdLNIiNjLbx8vsi337xANw z2yaCJSWsatrfNo3sAjeQ6 2ma9E2MysgY27arZOdQHT0 JADfTJBiwYPxXFUvAEO2MA PtxMRjJ8plLFCxWQ4rgotx IQqpGAeoULVbcTC6JLOxiU EgU7IdBKVdHSznRJEpxoh7 GyWdJl7yfKMriUuoEOhhTE JkXHBsYWluXGZzMjBccGFy ZTPzQSXKFE1JLINZHPRSCF orDL7DFQXGX3YJYCv7UDLa clxwYXJkICAgICAtIFxmMC VLNHBYTTOWQATRPU4AZOIf pXQbQUVqWKHlavJBojx7fc HAeD5bvA7atNApEBDDR2cj FCKefOEtKKysTFF5j3mloR YxXHNzdGVjZjIyMDAwXGFu a2gmSPLxnUJkQsCwQbPsIu DlQutlnFPjCYMxIpPma6oq a154eQYti7qnADWqOqB7fE YwOJYnyHjiapb0cZmuEgUu YGEvu8jsyxYtMfWgSXViOB GoLTHnkJYgF205WUNgXDkc r5svg4VnKUXdwFLdn0L8EY IYKDwhHgDoZ388o7vik2xz xwGprWP3YZUzBTF5AMipwd XmuhM5OLnbwUBwZeH2FXxu gcYjDKngyrYelbWpYya6YV YvE147OBN3dLfxi8qdUWT1 SFYtJSHcIrjrEo1tnPBtK8 27GSUpDRDMTSGuaSq9SIXu cmQobkUagAXHu581D606b7 kxIGVnbmYptYdRltprn3ab D935SKNcjIBastEcXmMuNJ CkfCUhlFA4YCUkNC3mmisp SUfpCOekAZLpejU8RFPnhE AtB2OjVAPaUR8kzwxeWVZ3 LCmmGVDdMQT4CnVaCYNmu7 Uvrtd6GxGfhv1fpc59FQV5 k1NeyTswWBK0LKA6MySfDp 8feWVvPXBoON7aQsIwzXHa CVApgf81bYfwICwxpuCnhP 0mLpLeASJcuXPzLZGrYF3p kAFnMMHvoX8sdoqbMUOiCi DnaakkYEXcvMisqxBhEd9u uZzpMSX8WBbzD2adrU0jOd E9HGbcA0umsY3dTNt5QVgi tYW8RAJbyH1aUM7gwybot8 luWUiuOUosLLBdhoS0mkI9 BRKofSHzQ2LwzP0fMHUqBO 0gikaky8xgOJJ9HVcbNFDq FWQ8XvCsOEHzq0Waiff2Aq Exd6WsaMUcUCitP41vl704 MPEwogRjB9vicCIttarcqF NuxbazIXawjnE5EVXuRGIn YWluXGYxXGZzMjBcbGFuZz EwMzNcaGljaFxmMVxkYmNo WJEfXDsvN1lrMuIyR5XgHQ NwTlYubWBnSPjxnJT7FRYs UJXim86haGm8GHDcctaon5 IzGWHtaAQhdYIugQ6ofwKt o3ptPXWtGKXnVNEyE0UfAP K1jCAbFNHsbHFuqWS9WK3k azKaSU7sNLWzMoflapLraI QgtgCeBTKeIApsd2ylFJ4a VMOreEsbaM8dbUP0HQPnj2 bnzCCbhTPvj6qbz9ZwbtMq ZShzKSBtYXkgYXBwZWFyIG 8eXENahHJtvgLgd2U5Uopz zLCmhcbwTrmaoyN0WDawvs whEUOlVMuvA7bzCiQnPYYe tMigUkzvu2PxIATqLYRdPo hccGFyfX0= Clinical Information 1. R/0 adenoma (test code = 5405625283) Gross Description (test v1dtnDHtUOVphPJCTJKuCy code = 2898524792) olaxSbWTKszHXsR9Wkrpgw CIrsCD5mMW0ynMuavMRxbQ TnPB3TRXHsBvFuTHZzaPOu ptFkLiTaADSwrUVvoUV4BJ SwKS9oeyryZTnkULcnQNYl juY5ZFIdrXMxN3IdPHFlFZ 5ucfxaXID6SOjbiR6ezhBN SmqkQg0xjIKouRgkEyTcVr NoYXJzZXQwXGZuaWwgQXJp OFg2lH3EZpnjZPB8JIRNZt dkUYKlCQ7Er3caODLfvFYw WFS7DNwnhLTpRWFtLFKjHW c8LCIiIYnksCPcBA5xdSkl UdjcuQbjz0YmcMZvESljCU SdQCKbOBjpHITkCO0PXaZi RKt5BxKkDBfeAFx6SVt6VB 9WUyAiICAxNTQxMTAxMyIg ANz2VQgoUT1DQPHgXjL6Fn O9LoZnPAH8JuylSMz5DPLc XFxmIEFyaWFsIFxcZnMgMT OvINccwLIfYC3zjHqugFIo blxmczIwXHBhciANClxwbG FpblxlcGljTmVzdERvYzEg DQpcbHRycGFyXGxpbjBccm luMCANClxsdHJjaFxmczIy IFNwZWNpbWVuIEEgaXMgcm MjqYQ8NDNexY5xDl8bwTSc sG8pdGZaJYykEEH6yQDfGC KeIZOgFWOwXY35L4VvpoTx ZSwgVUggbnVtYmVyICIgbG PyX5PdnF80RHE3cG0eZIJj LYMnyDCyc7l2tUQvUV7iVF AkjhTdr6EeOS4aTJAyu2ln Q9whLSFrkb7ueU2cPEAzYh VyaLjpg4YkHRLiEPexGM17 ICgwLjIgeCAwLjIgeCAwLj QdH58tNnNJhCNkv4OuL9zy MX6nmFOiFeougYEaDWPhtY lwd2LdtQRuQRAfa6RxmKQo TIctUT8dZMJ1Pc4bwRWmRM UfnnO5f0HlUKxyEIBmGmqg BCHxAUambERyFF5ELHKljW OIOLqil6KjJAywFBAKAkhy bGFpblxlcGljTmVzdERvYz JniGnkoP32QOSnvKVfGGO3 RR6eXCPwvrjqMJQwXWJbSA F8BCiigL18vXNjISIpGLYc rUQeeY1KPRQzCMF6LBwoxO 15dXBoVZ0PPMGiUFK2GJZy oFYkRDW5WJ0qfT6DqT== Embedded Images (test code = 0161803320) [facility]"
== END 2022-05-25 10:55 | disposition home or self-care (01) | DRG 247 ==
LOC: ER 23:32 → ERHOLD 05-23 01:17 → 2ND 05-23 02:49 → OBSVTOIN 05-23 12:14
PROVIDERS: ADMIT Internal Medicine Nephrology; ATTEND Internal Medicine Nephrology
PROC: 027034Z Dilation of Coronary Artery, One Artery with Drug-eluting Intraluminal Device, Percutaneous Approach (ICD-10-PCS; principal; 2022-05-24)
PROC: 4A023N7 Measurement of Cardiac Sampling and Pressure, Left Heart, Percutaneous Approach (ICD-10-PCS; 2022-05-24)
DX: I21.4 Non-ST elevation (NSTEMI) myocardial infarction (principal); E78.5 Hyperlipidemia, unspecified; I25.10 Atherosclerotic heart disease of native coronary artery without angina pectoris; F17.210 Nicotine dependence, cigarettes, uncomplicated; Z82.49 Family history of ischemic heart disease and other diseases of the circulatory system; Z20.822 Contact with and (suspected) exposure to COVID-19
CPT/HCPCS: 36415; 71045; 80048; 80061; 80076; 81003; 82550; 82553; 82947; 83036; 83735; 83880; 84100; 84132; 84484; 85025; 85027; 85347; 85610; 92928; 93005; 93306; 93458; 96372; 99285; C1725; C1893; G0378; J1644; J2250; J3010; J7040; Q9967; U0003